=== PATIENT | male | born 2000 | race Caucasian/White ===

== ENCOUNTER 2024-11-25 18:02 | Inpatient (IN) | payer SELFPAY ==
[2024-11-25] MEDS ORDERED: ACETAMINOPHEN INJECTION 100 ML ONE (19:23)
[2024-11-25] MEDS: ACETAMINOPHEN 1000 MG/100 ML BAG IVPB ONE (19:40)
[2024-11-25] MEDS: SODIUM CHLORIDE 1,000 ML IV ONE (19:40)
[2024-11-25 19:46] LABS: ABSOLUTE IMMATURE GRANULOCYTES 0.06 x10^3/uL (0.0-0.031); BASOPHILS # 0.05 x10^3/uL (0.01-0.08); EOSINOPHIL % 0.3 % (0.8-7.0); EOSINOPHILS # 0.05 x10^3/uL (0.04-0.54); HEMATOCRIT 43.7 % (40.1-51.0); HEMOGLOBIN 14.7 g/dL (13.7-17.5); MCHC 33.6 g/dl (32.3-36.5); MEAN CELL VOLUME 89.2 fl (79.0-92.2); MEAN PLT VOLUME 10.3 fl (9.4-12.4); MONOCYTE # 0.94 x10^3/uL (0.30-0.82); MONOCYTE % 5.8 % (5.3-12.2); PLATELET COUNT 261 x10^3/uL (163-337); RDW 12.9 % (11.9-15.3)
[2024-11-25 19:50] LABS: EPI CELLS 18 /uL (0-25.1); HYALINE CASTS 5 /uL (0-3.1); PH,URINE 6.5 (5.0-8.0); URINE APPEARANCE CLEAR; URINE BACTERIA 30 /uL (0-1359); URINE BILIRUBIN NEGATIVE (NEGATIVE); URINE COLOR DK YELLOW; URINE GLUCOSE (UA) NEGATIVE (NEGATIVE); URINE KETONE 4+ (NEGATIVE); URINE LEUK ESTERASE 1+ (NEGATIVE); URINE NITRITE NEGATIVE (NEGATIVE); URINE PROTEIN TRACE (NEGATIVE); URINE RBC 20 /uL (0-23.9); URINE WBC 318 /uL (0-25.8)
[2024-11-25 20:15] LABS: POTASSIUM 3.5 mmol/L (3.5-5.1)
[2024-11-25 20:17] LABS: ALBUMIN 4.1 g/dl (3.4-5.0); CALCIUM 9.7 mg/dL (8.5-10.1)
[2024-11-25 20:18] LABS: BLOOD UREA NITROGEN 13.3 mg/dL (7-18)
[2024-11-25 20:21] LABS: CREATININE 0.7 mg/dL (0.55-1.3)
[2024-11-25 20:22] LABS: BILIRUBIN,TOTAL 0.9 mg/dL (0.2-1); TOT PROT 7.3 g/dl (6.4-8.2)
[2024-11-25 21:11] LABS: HCV DIAGNOSTIC IN-HOUSE W/RFLX NON-REACTIVE (NONREACTIVE); HIV INTERPRETATION NEGATIVE (NEGATIVE)
[2024-11-25] MEDS ORDERED: PIPERACILLIN/TAZOB 4.5 GM 4.5 GM/100 ML BAG IVPB ONE (23:42)
[2024-11-25] MEDS: PIPERACILLIN/TAZOB 3.375 GM 4.5 GM in DEXTROSE 5%-WATER - 50 ML IVPB ONE (23:52)
[2024-11-26] MEDS: ceFAZolin SODIUM 1 GM VIAL IVPB ONE
[2024-11-26] MEDS ORDERED: ACETAMINOPHEN 1000 MG/100 ML BAG IVPB PRN ×2 (00:08→11:58)
[2024-11-26] MEDS: DEXTROSE 5%-NORMAL SALINE 1,000 ML IV SCH ×2 (00:57→14:11)
[2024-11-26] MEDS ORDERED: MORPHINE SULFATE 2 MG/ML SYRINGE IVPUSH PRN (01:15)
[2024-11-26] MEDS: PIPERACILLIN/TAZOB 3.375 GM 3.375 GM in DEXTROSE 5%-WATER - 50 ML IVPB SCH (02:54)
[2024-11-26 03:16] VITALS: BMI 31.9
[2024-11-26] MEDS: PIPERACILLIN/TAZOB 3.375 GM 3.375 GM/50 ML BAG IVPB SCH (03:16)
[2024-11-26 08:33] LABS: INR 1.24 (0.83-1.09); PROTHROMBIN TIME (PATIENT) 13.6 SEC (9.7-13.0)
[2024-11-26 08:44] LABS: HEMATOCRIT 41.8 % (40.1-51.0); HEMOGLOBIN 14.2 g/dL (13.7-17.5); MEAN CELL VOLUME 90.5 fl (79.0-92.2); PLATELET COUNT 241 x10^3/uL (163-337)
[2024-11-26 08:56] LABS: POTASSIUM 3.4 mmol/L (3.5-5.1)
[2024-11-26 09:09] LABS: ALBUMIN 3.6 g/dl (3.4-5.0); BLOOD UREA NITROGEN 10.9 mg/dL (7-18)
[2024-11-26 09:10] LABS: CALCIUM 9.1 mg/dL (8.5-10.1); MAGNESIUM 2.3 mg/dL (1.8-2.4)
[2024-11-26 09:12] LABS: CREATININE 0.6 mg/dL (0.55-1.3); PHOSPHOROUS 3.3 mg/dL (2.5-4.9)
[2024-11-26 09:13] LABS: TOT PROT 6.3 g/dl (6.4-8.2)
[2024-11-26] MEDS ORDERED: BUPIVACAINE HCL/PF 0.25% (2.5MG/ML) 10 ML VIAL ONE (09:42)
[2024-11-26] MEDS ORDERED: ROCURONIUM BROMIDE 50 MG/5 ML SYRINGE ONE (10:06)
[2024-11-26] MEDS ORDERED: PROPOFOL 40 ML ONE (10:06)
[2024-11-26] MEDS ORDERED: HYDROmorphone HCl 2 MG/ML VIAL ONE (10:06)
[2024-11-26] MEDS: PIPERACILLIN/TAZOBACTAM 3.375 GM VIAL IVPB ONE (10:15)
[2024-11-26] MEDS ORDERED: ceFAZolin SODIUM 1 GM VIAL ONE (10:20)
[2024-11-26] MEDS ORDERED: ONDANSETRON 4 MG/2 ML VIAL ONE (10:21)
[2024-11-26] MEDS ORDERED: DEXAMETHASONE SOD PHOSPHATE 4 MG/1 ML VIAL ONE (10:21)
[2024-11-26] MEDS: BUPIVACAINE HCL/PF 0.25% (2.5MG/ML) 10 ML VIAL IJ ONE ×2 (10:45)
[2024-11-26] MEDS: LACTATED RINGERS SOLUTION 1,000 ML IV SCH ×2 (12:11→14:15)
[2024-11-26] MEDS ORDERED: ACETAMINOPHEN INJECTION 100 ML ONE (13:01)
[2024-11-26] MEDS: ACETAMINOPHEN 1000 MG/100 ML BAG IVPB SCH (13:03)
[2024-11-26 13:31] VITALS: RESP 18
[2024-11-26] MEDS: POTASSIUM CHLORIDE ORAL LIQUID 20 MEQ/15 ML PO ONE (14:14)
[2024-11-26] MEDS: oxyCODONE HCL 5 MG TABLET PO PRN (16:37)
[2024-11-26] MEDS: PIPERACILLIN/TAZOB 3.375 GM 3.375 GM in DEXTROSE 5%-WATER - 50 ML IVPB ONE (17:34)
[2024-11-27] MEDS: POTASSIUM CHLORIDE TABS 20 MEQ TABLET.ER (FP) PO ONE (09:15)
[2024-11-27 10:13] VITALS: BP 111/59; PULSE 62; TEMP 98.1
[2024-11-27 10:38] LABS: ABSOLUTE IMMATURE GRANULOCYTES 0.07 x10^3/uL (0.0-0.031); BASOPHILS # 0.03 x10^3/uL (0.01-0.08); EOSINOPHIL % 0.3 % (0.8-7.0); EOSINOPHILS # 0.04 x10^3/uL (0.04-0.54); HEMATOCRIT 43.2 % (40.1-51.0); HEMOGLOBIN 14.6 g/dL (13.7-17.5); MCHC 33.8 g/dl (32.3-36.5); MEAN CELL VOLUME 90.4 fl (79.0-92.2); MEAN PLT VOLUME 10.8 fl (9.4-12.4); MONOCYTE # 0.59 x10^3/uL (0.30-0.82); MONOCYTE % 4.7 % (5.3-12.2); PLATELET COUNT 293 x10^3/uL (163-337); RDW 12.9 % (11.9-15.3)
[2024-11-27 11:01] LABS: POTASSIUM 3.9 mmol/L (3.5-5.1)
[2024-11-27 11:16] LABS: BLOOD UREA NITROGEN 8.1 mg/dL (7-18); CALCIUM 9.4 mg/dL (8.5-10.1); MAGNESIUM 2.4 mg/dL (1.8-2.4)
[2024-11-27 11:19] LABS: ALBUMIN 3.6 g/dl (3.4-5.0); CREATININE 0.7 mg/dL (0.55-1.3)
[2024-11-27 11:21] LABS: BILIRUBIN,TOTAL 0.6 mg/dL (0.2-1); TOT PROT 6.8 g/dl (6.4-8.2)
[2024-11-28] MEDS ORDERED: PIPERACILLIN/TAZOB 3.375 GM 3.375 GM/50 ML BAG IVPB SCH (02:00)
== END 2024-11-27 13:03 | disposition home or self-care (01) | DRG 225 ==
LOC: JER 18:02 → JERBED 23:46 → J8W 11-26 02:30
PROVIDERS: ADMIT Hospitalist; ATTEND Nurse Practitioner Family
PROC: 0DTJ4ZZ Resection of Appendix, Percutaneous Endoscopic Approach (ICD-10-PCS; principal; 2024-11-26 10:30)
DX: K35.80 Unspecified acute appendicitis (principal); K76.0 Fatty (change of) liver, not elsewhere classified; E66.9 Obesity, unspecified; F12.90 Cannabis use, unspecified, uncomplicated; Z68.30 Body mass index [BMI] 30.0-30.9, adult; R10.31 Right lower quadrant pain
CPT/HCPCS: 36415; 74177-TC; 80053; 81003; 83690; 83735; 84100; 85025; 85027; 85610; 86803; 86850; 86900; 86901; 87389; 88304-TC; 94760; 99285-25; J0131; Q9967